=== PATIENT | female | born 1970 | race African-American/Black ===

== ENCOUNTER 2021-05-28 23:43 | Emergency (ER) | payer BC ==
[~2021-05-28] VITALS: Ht 160 cm; Wt 77.6 kg
[2021-05-28 23:51] VITALS: BP_SYST 123
[2021-05-29] MEDS ORDERED: SER25 PO (02:22)
[2021-05-29 02:33] VITALS: BP_SYST 118
== END 2021-05-29 02:33 | disposition home or self-care (01) ==
LOC: SED 23:43
DX: G47.00 Insomnia, unspecified (principal)
CPT/HCPCS: 99283